=== PATIENT | female | born 1935 | race Caucasian/White ===

== ENCOUNTER → 2017-05-27 | Outpatient (CLI) | payer MEDICARE, BC ==
[~2017-05-27] MED LIST: ALEVE; ALEVE220 M1 PO; AMLODIPINE PO; ASPIRIN PO; BISOPROLOL; CRESTOR10 MG PO; ELIQUIS PO; FUROSEMIDE40 MG PO; IRON SUPPLEMEN325 MG PO; LEVOTHYROXINE150 MCG PO; METOPROLOL TART25 MG PO; PANTOPRAZOLE SO40 MG PO; POTASSIUM CHLO20 ME1 PO; TRIAMTERENE; VITAMIN B-121000 MCG PO; ZYRTEC10 MG PO
--- NOTE | 2017-05-27 12:07 | Diagnostic Imaging Report ---
PROCEDURE:US RETROPERITONEAL ( KIDNEY ). COMPARISON:Patients [facility], US, US RETROPERITONEAL ( KIDNEY )., 06/23/2016, 11:36. INDICATIONS:Chronic Kidney Disease TECHNIQUE: Wen-scale and color sonographic images of the bilateral kidneys and bladder where obtained in transverse and longitudinal planes. FINDINGS: RIGHT KIDNEY: 8.9 cm, cortex 1.5 cm Cysts: None Solid masses: None Stones: None Hydronephrosis: None Echogenicity: Increased LEFT KIDNEY: 8.8 cm, cortex 1.3 cm Cysts: None Solid masses: None Stones: None Hydronephrosis: None Echogenicity: Increased Bladder: No focal lesions. No wall thickening. Prevoid bladder volume 285 mL. Post void bladder volume 40 mL. CONCLUSION: 1. Small echogenic kidneys consistent with chronic medical renal disease. No hydronephrosis, stones, or obstruction. 2. No significant postvoid residual. Joselito Lacey M.D. Dictated by: Joselito Lacey M.D. on 05/27/2017 at 12:16 Electronically approved by: Joselito Lacey M.D. on 05/27/2017 at 12:16
--- NOTE | 2017-05-27 12:07 | Diagnostic Imaging Report ---
PROCEDURE:URINARY BLADDER ULTRASOUND COMPARISON:None. INDICATIONS:Chronic Kidney Disease CONCLUSION: Please refer to renal ultrasound performed at the same date and time for full dictated report. Joselito Lacey M.D. Dictated by: Joselito Lacey M.D. on 05/27/2017 at 12:16 Electronically approved by: Joselito Lacey M.D. on 05/27/2017 at 12:16
== END ==
LOC: US 10:43
PROVIDERS: ATTEND Internal Medicine Nephrology
DX: N18.4 Chronic kidney disease, stage 4 (severe) (principal)
CPT/HCPCS: 76770; 76857

== ENCOUNTER 2018-08-09 10:42 | Observation (INO) | payer MEDICARE, BC ==
[~2018-08-09] VITALS: Ht 157.5 cm; Wt 62.7 kg
--- OUTSIDE RECORDS SUMMARY | 2018-08-09 10:45 | XMS REPORT ---
Author Author [facility] Address Unknown Phone Unavailable Care Team Providers Care Aircraft Layout Worker Name Role Phone REBECCA RINCON Unavailable Unavailable Problems This patient has no known problems. Allergies, Adverse Reactions, Alerts This patient has no known allergies or adverse reactions. Medications This patient has no known medications. Results Test Description Test Time Test Comments Text Results Atomic Results Result Comments US RENAL RETROPERITONEAL COMP [place] [address] Patient Name: PERICO MILTON MR #: [id number] : 1935 Age/Sex: 82/F Req #: [id number] Adm Physician: Ordered by: REBECCA RINCON MD Report #: [id number] Location: Room/Bed: Procedure: [id number] US/US RENAL RETROPERITONEAL COMP Exam Date: Exam Time: REPORT STATUS: Signed PROCEDURE: US RETROPERITONEAL ( KIDNEY ). COMPARISON: [facility], , US RETROPERITONEAL ( KIDNEY )., 06/23/2016, 11:36. INDICATIONS: Chronic Kidney Disease TECHNIQUE: Wen-scale and color sonographic images of the bilateral kidneys and bladder where obtained in transverse and longitudinal planes. FINDINGS: RIGHT KIDNEY: 8.9 cm, cortex 1.5 cm Cysts: None Solid masses: None Stones: None Hydronephrosis: None Echogenicity: Increased LEFT KIDNEY: 8.8 cm, cortex 1.3 cm Cysts: None Solid masses: None Stones: None Hydronephrosis: None Echogenicity: Increased Bladder: No focal lesions. No wall thickening. Prevoid bladder volume 285 mL. Post void bladder volume 40 mL. CONCLUSION: 1. Small echogenic kidneys consistent with chronic medical renal disease. No hydronephrosis, stones, or obstruction. 2. No significant postvoid residual. Hannah Lacey M.D. Dictated by: Hannah Lacey M.D. on 05/27/2017 at 12:16 Electronically approved by: Hannah Lacey M.D. on 05/27/2017 at 12:16 Dictated By: HANNAH LACEY MD 1216 Transcribed By: SIRENA on 05/27/17 1216 COPY TO: REBECCA RINCON MD US PELVIC (NON OB) THOMPSON OR F/U [place] [address] Patient Name: PERICO MILTON MR #: [id number] : 1935 Age/Sex: 82/F Req #: [id number] Adm Physician: Ordered by: REBECCA RINCON MD Report #: [id number] Location: Room/Bed: Procedure: [id number] US/US PELVIC (NON OB) THOMPSON OR F/U Exam Date: Exam Time: REPORT STATUS: Signed PROCEDURE: URINARY BLADDER ULTRASOUND COMPARISON: None. INDICATIONS: Chronic Kidney Disease CONCLUSION: Please refer to renal ultrasound performed at the same date and time for full dictated report. Hannah Lacey M.D. Dictated by: Hannah Lacey M.D. on 05/27/2017 at 12:16 Electronically approved by: Hannah Lacey M.D. on 05/27/2017 at 12:16 Dictated By: HANNAH LACEY MD 1216 Transcribed By: SIRENA on 05/27/17 1216 COPY TO: REBECCA RINCON MD
[2018-08-09 11:58] LABS: BASOPHILS % 0.5 % (0.0-1.0); HEMATOCRIT 32.3 % (34.2-44.1); LYMPHOCYTES # (AUTO) 1.3 (1.0-3.2); LYMPHOCYTES % 19.8 % (18.0-39.1); MEAN CORPUSCULAR HEMOGLOBIN 29.8 pg (28-32); MEAN CORPUSCULAR HGB CONC 34.1 g/dL (31-35); MEAN CORPUSCULAR VOLUME 87.5 fL (81-99); MONOCYTES # (AUTO) 0.4 (0.2-0.8); MONOCYTES % 6.4 % (4.4-11.3); NEUTROPHILS # (AUTO) 4.8 (2.1-6.9); NEUTROPHILS % 73.1 % (38.7-80.0); PLATELET COUNT 205 x10e3/uL (140-360); RED BLOOD COUNT 3.69 x10e6/uL (3.6-5.1); RED CELL DISTRIBUTION WIDTH 11.6 % (11.7-14.4)
[2018-08-09 12:15] LABS: ALBUMIN 4.1 g/dL (3.5-5.0); ALBUMIN/GLOBULIN RATIO 1.1 (0.8-2.0); ANION GAP 17.2 mmol/L (8-16); CALCIUM 10.1 mg/dL (8.4-10.2); CREATININE, SERUM 1.58 mg/dL (0.57-1.11); POTASSIUM 4.2 mmol/L (3.5-5.1)
[2018-08-09 12:24] LABS: CREATINE KINASE MB 3.1 ng/mL (0-5.0)
[2018-08-09 12:31] LABS: INR 0.84
[2018-08-09 12:32] LABS: PARTIAL THROMBOPLASTIN TIME 27.6 seconds (23.8-35.5)
--- NOTE | 2018-08-09 12:35 | Diagnostic Imaging Report ---
Examination: Single AP view of the chest. COMPARISON: None. INDICATION: Weakness, hypotension DISCUSSION: The lungs are well-inflated and without focal consolidation, pleural effusion, or pneumothorax. Atherosclerotic calcification of the thoracic aorta with otherwise normal cardiomediastinal contour. No acute osseous abnormality. Degenerative changes of the right acromioclavicular joint with a surgical anchor in the right humeral head. IMPRESSION: 1. No acute cardiopulmonary abnormalities. Signed by: Dr. Jake Gibson M.D. on 08/09/2018 12:31 PM
--- NOTE | 2018-08-09 12:38 | Diagnostic Imaging Report ---
EXAMINATION: Head CT HISTORY: Weakness, hypotension COMPARISON: Head CT 06/22/2016 TECHNIQUE: Multidetector axial images were obtained without contrast from the foramen magnum to the vertex . The images were reconstructed using brain and bone algorithms. Thin section brain images were reformatted into coronal and sagittal planes. Image quality: Motion/streaking artifact limits the evaluation of the skull base and posterior cranial fossa. Dose modulation, iterative reconstruction, and/or weight based adjustment of the mA/kV was utilized to reduce the radiation dose to as low as reasonably achievable. FINDINGS: Parenchyma: 1. Persistent mild white matter chronic microvascular ischemic changes. 2. No mass or hemorrhage. No CT evidence of acute territorial vascular insult. Extra-axial spaces:No abnormal density. No extra-axial fluid collections Brain volume: Mild generalized brain volume loss. Ventricles: No hydrocephalus or displacement. Arteries: No density suggestive of thrombus. Dural sinuses: No abnormal density. Extra-axial spaces: No abnormal density. Foramen magnum: No mass, Chiari malformation, or basilar invagination. Sella: No obvious mass. Paranasal/mastoid sinuses: Imaged portions unremarkable. Skull/Scalp: No lytic or blastic lesions. No fractures. IMPRESSION: 1. No acute intracranial abnormalities, unchanged compared to CT of 06/22/2016. 2. Stable mild chronic microvascular ischemic changes. Signed by: Dr. Kae Weir M.D. on 08/09/2018 12:35 PM
[2018-08-09 13:15] LABS: BILIRUBIN,URINE NEGATIVE (NEGATIVE); CLARITY,URINE CLEAR (CLEAR); COLOR,URINE STRAW (YELLOW); KETONES,URINE NEGATIVE (NEGATIVE); LEUKOCYTE ESTERASE ,URINE NEGATIVE (NEGATIVE); NITRITE,URINE NEGATIVE (NEGATIVE); PROTEIN,URINE DIPSTICK NEGATIVE (NEGATIVE); URINE UROBILINOGEN 0.2 mg/dL (0.2 - 1)
[2018-08-09 13:36] LABS: AMORPHOUS SEDIMENT,URINE FEW (FEW); BACTERIA,URINE MODERATE /HPF; EPITHELIAL CELLS,URINE RARE /LPF; RBC,URINE 0-5 /HPF (0-5)
[2018-08-09] MEDS ORDERED: SODIUM CHLORIDE 0.9% 1000ML 1,000 ML IV SCH (17:00)
[2018-08-09] MEDS ORDERED: ONDANSETRON HCL INJ 2MG/ML 2ML 2 MG/ML VIAL IV PRN (18:00)
[2018-08-09] MEDS ORDERED: CEFTRIAXONE SOD 1 GM/NS 50 ML 50 ML IV SCH (18:00)
[2018-08-09] MEDS ORDERED: PANTOPRAZOLE 40 MG 10ML VIAL IV ONE (18:00)
[2018-08-09] MEDS: CEFTRIAXONE SOD 1 GM/NS 50 ML 50 ML IV SCH (21:42)
[2018-08-09] MEDS: PANTOPRAZOLE 40 MG 10ML VIAL IV SCH (21:43)
[2018-08-09] MEDS: SODIUM CHLORIDE 0.9% 1000ML 1,000 ML IV SCH (22:00)
[2018-08-09] MEDS ORDERED: ULORIC40 MG PO (22:06)
--- NOTE | 2018-08-09 22:41 | NUR ---
Verbal report given to Orin RAYMOND. Pt is in no acute distress at this time.
--- NOTE | 2018-08-10 01:09 | History and Physical ---
CHIEF COMPLAINT: "I feel very weak." HISTORY OF PRESENT ILLNESS: This is an 83-year-old white woman, who presents to [facility] with a 1-week history of worsening generalized weakness. The patient states over the last 3 to 4 days she has had inadvertent regurgitation with solids and liquids. The patient is very afraid to fall. In the emergency room, the patient was found to have a sodium level of 121. The patient's complete blood count was normal, except for hemoglobin slightly low at 11.0 g/dL. The patient's urinalysis was unremarkable, except it did reveal trace blood with moderate bacteria. No white blood cells were appreciated in the urine. The patient had a CT of the head, which did not reveal any acute intracranial abnormality. The patient underwent a chest x-ray in the emergency room, which also was unremarkable. REVIEW OF SYSTEMS: GENERAL: Weight is stable. Denies any fever or chills. She complains of worsening weakness over the last week. HEENT: No headaches. No visual changes. No dizziness. CARDIOVASCULAR/RESPIRATORY: No chest pain or shortness of breath, but she has dyspnea on exertion. Denies any palpitation, but she has history of paroxysmal atrial fibrillation. GI: She has inadvertent regurgitation over the last few days. No nausea though. No diarrhea. : Frequent urination. Denies any other UTI symptoms. ALLERGIES: IODINE. FAMILY HISTORY: Mother had congestive heart failure. SOCIAL HISTORY: This woman is a . She lives alone. No history of tobacco or alcohol use. PAST MEDICAL HISTORY: 1. Hypertensive heart disease. 2. Paroxysmal atrial fibrillation. 3. Stage 3 chronic kidney disease. 4. Multilevel lumbar disk disease. 5. Hypothyroidism. 6. Anemia, secondary to chronic disease/iron deficiency. 7. GERD. 8. Hyperlipidemia. 9. Sinus allergies. PAST SURGICAL HISTORY: 1. Multiple EGDs. 2. Right rotator cuff repair. 3. Hemorrhoidectomy. 4. Foot surgery. 5. Bilateral cataract surgery. HOME MEDICATIONS: 1. Zyrtec 10 mg daily. 2. Vitamin B12 of 1000 mcg daily. 3. Ferrous sulfate 325 mg daily. 4. Furosemide 40 mg daily. 5. Levothyroxine 150 mcg daily. 6. Metoprolol tartrate 25 mg. 7. Pantoprazole 40 mg daily. 8. Potassium chloride 20 mEq daily. 9. Rosuvastatin 10 mg at bedtime. 10. Amlodipine 10 mg daily. PHYSICAL EXAMINATION: GENERAL: She is awake, alert, and fluent, very pleasant. VITAL SIGNS: Height 5 feet 4 inches, weight 137 pounds, BMI 30. Blood pressure is 155/80, pulse is 90, respiratory rate 18, oxygen saturation 95%, temperature 98.1. INTEGUMENT: Skin is warm and dry. No pallor, jaundice, or diaphoresis. HEENT: Anterior sclerae. Dry mucous membranes. NECK: Supple. CARDIOVASCULAR: Distant heart sounds. Tachycardic rate with a regular rhythm. The patient has S4 gallop. LUNGS: No rales. No rhonchi. No wheezes. ABDOMEN: Benign. EXTREMITIES: No edema or deformity. NEUROLOGIC: Intact. No gross focal paresthesia, but she does have an unsteady gait. DIAGNOSES: 1. Hyponatremia. 2. Hypertensive heart disease. 3. Qynld-el-xdycmud renal failure. 4. Gastritis. 5. Urinary tract infection, likely. PLAN: 1. Free water restriction because of the patient's hyponatremia. 2. Intravenous saline. 3. Intravenous proton pump inhibitor. 4. We will ask Physical Therapy to assess the patient's gait. 5. Follow electrolytes. 6. Start intravenous ceftriaxone for the patient's presumed urinary tract infection. 7. Place in observation status. I spent 40 minutes in the care of this patient. MD PRANAV Curiel/MARY /[id number] MTDD
--- NOTE | 2018-08-10 07:15 | NUR ---
REPORT GIVEN TO MANDI MUNIZ DAY SHIFT NURSE.
[2018-08-10] MEDS: SODIUM CHLORIDE 0.9% 1000ML 1,000 ML IV SCH ×3 (07:50→17:51)
--- NOTE | 2018-08-10 08:30 | NUR ---
ECHO AT BEDSIDE AT THIS TIME.
[2018-08-10 08:42] LABS: BASOPHILS % 0.7 % (0.0-1.0); EOSINOPHILS % 0.9 % (0.0-6.0); HEMATOCRIT 29.4 % (34.2-44.1); LYMPHOCYTES # (AUTO) 1.5 (1.0-3.2); LYMPHOCYTES % 32.4 % (18.0-39.1); MEAN CORPUSCULAR HEMOGLOBIN 29.9 pg (28-32); MONOCYTES # (AUTO) 0.5 (0.2-0.8); MONOCYTES % 10.9 % (4.4-11.3); NEUTROPHILS # (AUTO) 2.5 (2.1-6.9); NEUTROPHILS % 54.7 % (38.7-80.0); PLATELET COUNT 189 x10e3/uL (140-360); RED BLOOD COUNT 3.34 x10e6/uL (3.6-5.1); RED CELL DISTRIBUTION WIDTH 11.7 % (11.7-14.4)
[2018-08-10 08:59] LABS: ANION GAP 16.3 mmol/L (8-16); CALCIUM 9.3 mg/dL (8.4-10.2); CREATININE, SERUM 1.4 mg/dL (0.57-1.11); POTASSIUM 4.3 mmol/L (3.5-5.1)
[2018-08-10] MEDS: PANTOPRAZOLE 40 MG 10ML VIAL IV SCH (09:00)
--- NOTE | 2018-08-10 09:11 | NUR ---
LUKAS FROM LAB CALLED TO REPORT CRITICAL BLOOD GLUCOSE 56 MG/DL. INFORMED MANDI MUNIZ PT'S PRIMARY NURSE.
--- NOTE | 2018-08-10 09:20 | NUR ---
DR. GARDINER AT BEDSIDE AT THIS TIME FOR PATIENT EVAL, AWAITING ORDERS.
--- NOTE | 2018-08-10 11:35 | NUR ---
patient arrived via bed from ER, AAOx3, No distress noted, denies any pain, resp even and unlabored, on IV fluids, call light in reach, bed in lowest position HOB elevated
[2018-08-10 11:47] VITALS: BP 116/67
--- NOTE | 2018-08-10 13:45 | NUR ---
Visit made by the Spiritual Care Department Pastoral Visitor, Kassi Blanchard. PV provided pastoral presence, prayer, hospitality, and supportive listening. Pastoral Visitor informed pt/family of the scope of Clinical Admissions Manager Services and availability. KITA BARBOZA [employer] Grade Teacher Spiritual Care Department O: [phone] Pager: [phone] ([phone] number calling from)
[2018-08-10 14:26] VITALS: BP 126/60
[2018-08-10 16:27] VITALS: BP 136/63
[2018-08-10] MEDS: CEFTRIAXONE SOD 1 GM/NS 50 ML 50 ML IV SCH (17:13)
--- NOTE | 2018-08-10 18:11 | NUR ---
patient resting bed, alert with no distress, on IV fluids, denies any pain, tolerated with food
--- NOTE | 2018-08-10 19:20 | NUR ---
Received report from previous nurse. Patient A&Ox3. No pain or distress noted. Call light within reach.
[2018-08-10 20:00] VITALS: BP 127/59
[2018-08-11] VITALS (8 sets, daily range): BP systolic 112–152; BP diastolic 59–81
[2018-08-11] MEDS: SODIUM CHLORIDE 0.9% 1000ML 1,000 ML IV SCH ×2 (01:51→09:51)
[2018-08-11 05:19] LABS: BASOPHILS % 0.8 % (0.0-1.0); EOSINOPHILS # (AUTO) 0.1 (0.0-0.4); EOSINOPHILS % 1.8 % (0.0-6.0); HEMATOCRIT 25.4 % (34.2-44.1); HEMOGLOBIN 8.5 g/dL (12.0-16.0); LYMPHOCYTES # (AUTO) 1.1 (1.0-3.2); LYMPHOCYTES % 28.9 % (18.0-39.1); MEAN CORPUSCULAR HEMOGLOBIN 29.8 pg (28-32); MEAN CORPUSCULAR HGB CONC 33.5 g/dL (31-35); MEAN CORPUSCULAR VOLUME 89.1 fL (81-99); MONOCYTES # (AUTO) 0.5 (0.2-0.8); NEUTROPHILS # (AUTO) 2.2 (2.1-6.9); NEUTROPHILS % 55.2 % (38.7-80.0); PLATELET COUNT 172 x10e3/uL (140-360); RED BLOOD COUNT 2.85 x10e6/uL (3.6-5.1); RED CELL DISTRIBUTION WIDTH 11.9 % (11.7-14.4)
[2018-08-11 05:45] LABS: ALBUMIN 2.9 g/dL (3.5-5.0); ANION GAP 10.8 mmol/L (8-16); CALCIUM 8.5 mg/dL (8.4-10.2); CREATININE, SERUM 1.31 mg/dL (0.57-1.11); POTASSIUM 3.8 mmol/L (3.5-5.1)
--- NOTE | 2018-08-11 07:07 | NUR ---
Gave report to oncoming nurse. NO pain or distress noted. Call light within reach.
[2018-08-11] MEDS: PANTOPRAZOLE 40 MG 10ML VIAL IV SCH (09:00)
--- NOTE | 2018-08-11 12:10 | NUR ---
SOCIAL WORK INITIAL ASSESSMENT Funeral Service Manager to bedside to discuss plan of care with patient/family. CM/SW role and care transitions discussed. Anticipated discharge plan discussed along with duration of care. CM/SW discussed patients right to make decisions in care. CM/SW work hours given. Patient lives: HOME ALONE Admit/Transfer: VIA ED FROM HOME POA/Emergency contact: DAUGHTER IN LAW BEING CREAMATED TODAY SO EC IS FRIEND ALISHA FRAGOSO [phone] Current/Previous Home Health: NONE PCP/Follow-up Care: ABDIFATAH Current/Previous DME: NONE Other Services: NONE Employment Status: RETIRED Areas of Concerns: NEED HOME HEALTH Referral Needs: MY NURSE HOME HEALTH CHOICE SIGNED AND FILED ON CHART Education Needs: NONE IMM/ZAMARRIPA given and signed (if applicable): UPON ADMISSION Goal for discharge: RETURN HOME WITH HOME HEALTH CM/SW left business card at the bedside with contact information. Name and number was also written on the patients whiteboard. Patient verbalized understanding of discussion. CM will follow-up with ongoing discharge and transition of care needs.
--- NOTE | 2018-08-11 13:30 | NUR ---
patient alert and oriented. Discharge instructions given to patient at this time, patient verbalized understanding. IV discontinued, catheter in tact and pressure dressing applied. Patient leaving unit via wheelchair to personal auto for friend to drive home.
--- NOTE | 2018-08-11 14:43 | NUR ---
FAXED CLINICALS TO [phone] VERIFIED THROUGH [facility] IT WAS RECEIVED AND PT WILL BE SEEN TOMORROW
--- NOTE | 2018-08-12 04:38 | Discharge Summary ---
ADMIT DIAGNOSES: 1. Hyponatremia. 2. Hypertensive heart disease. 3. Dofbk-af-jfkxggk renal failure. 4. Gastritis. 5. Urinary tract infection, likely. DISCHARGE DIAGNOSES: 1. Hyponatremia, resolving. 2. Hypertensive heart disease. 3. Chronic diastolic congestive heart failure. 4. Kexvd-hd-thjipkt renal failure, resolved. 5. Stage 3 chronic kidney disease. 6. Allergic rhinitis. 7. Urinary tract infection, resolving. HOSPITAL COURSE: This is an 83-year-old white woman initially admitted to [facility] with diagnosis of hyponatremia and ijopw-ye-jqlcnxy renal failure. The patient's hyponatremia and gzwgb-gr-bgeafkm renal failure resolved with intravenous saline. On admission, the patient's serum sodium is 121 mg/dL with a BUN and creatinine of 15 and 1.58 respectively. On day of discharge, the patient's BUN and creatinine were 13 and 1.31 respectively with a sodium of 132. The patient's potassium on discharge was 3.8. During this hospitalization, the patient was found to have TSH of 1.568. Also during this hospitalization, the patient was found to have B type natriuretic peptide level of 82.5. The patient underwent echocardiogram during this hospitalization, which revealed a preserved left ventricular ejection fraction of 50%-55% with left atrial enlargement. The patient's hospitalization was unremarkable. During this hospital stay, she did receive physical therapy. CONDITION ON DISCHARGE: Stable. DISCHARGE MEDICATIONS: 1. Vitamin B12 1000 mcg daily. 2. Uloric 40 mg daily. 3. Ferrous sulfate 325 mg daily. 4. Furosemide 40 mg daily. 5. Levothyroxine 150 mcg. 6. Pantoprazole 40 mg daily. 7. Rosuvastatin 20 mg at bedtime. 8. Amlodipine 10 mg daily. FOLLOWUP INSTRUCTIONS: The patient is instructed to follow up with her primary care physician, namely myself, Dr. Bradly Duke within 1 week. The prior discharge home health nursing with home physical therapy was arranged. The patient was told not to drink more than 4 glasses of water a day with each glass being 8 ounces of volume. MD PRANAV Curiel/MARY /[id number] MTDD
== END 2018-08-11 13:32 | disposition home or self-care (01) ==
LOC: ER 10:42 → ERHOLD 17:51 → IMCU 08-10 10:51
PROVIDERS: ADMIT Internal Medicine; ATTEND Internal Medicine
DX: I13.0 Hypertensive heart and chronic kidney disease with heart failure and stage 1 through stage 4 chronic kidney disease, or unspecified chronic kidney disease (principal); I50.33 Acute on chronic diastolic (congestive) heart failure; N18.3 Chronic kidney disease, stage 3 (moderate); N39.0 Urinary tract infection, site not specified; E87.1 Hypo-osmolality and hyponatremia; K29.70 Gastritis, unspecified, without bleeding; N17.9 Acute kidney failure, unspecified
CPT/HCPCS: 36415 ×3; 70450; 71045; 80048; 80053 ×2; 81001; 82150; 82550; 82553; 82948; 83690; 83880; 84443; 84484; 85025 ×3; 85610; 85730; 93005; 93306; 97116 ×2; 97162; 97530; 99284; C9113; G0378 ×3; J0696 ×2; J7030 ×3

== ENCOUNTER 2019-01-29 08:59 | Inpatient (IN) | payer MEDICARE, BC ==
[~2019-01-29] VITALS: Ht 157.5 cm; Wt 69.4 kg
[~2019-01-29 08:59] MED LIST changes: +ULORIC40 MG PO
--- OUTSIDE RECORDS SUMMARY | 2019-01-29 09:04 | XMS REPORT ---
Author Author Karri Gaviria Organization [employer] Address Unknown Phone Unavailable Care Team Providers Care Ship Design Teacher Name Role Phone Karri Gaviria CP Unavailable Allergies No Known Allergies Problems Problem Type Condition Code Onset Dates Condition Status Assessment Essential hypertension I10 Active Problem Abnormal EKG R94.31 Active Problem Proximal leg weakness M62.81 Active Problem Diastolic CHF, acute I50.31 Active Problem Pure hypercholesterolemia E78.00 Active Problem Paroxysmal a-fib I48.0 Active Problem MEDELLIN (dyspnea on exertion) R06.09 Active Problem Hemifacial spasm G51.3 Active Problem Arteriosclerosis of both carotid arteries I65.23 Active Problem Essential hypertension I10 Active Medications Medication Code System Code Instructions Start Date End Date Status Dosage Amlodipine Besylate [facility] [address]-98 10 MG Orally Once a day Active 1 tablet Results No Known Results Summary Purpose [employer] Submission
--- OUTSIDE RECORDS SUMMARY | 2019-01-29 09:04 | XMS REPORT ---
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
--- OUTSIDE RECORDS SUMMARY | 2019-01-29 09:04 | XMS REPORT ---
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
--- OUTSIDE RECORDS SUMMARY | 2019-01-29 09:04 | XMS REPORT ---
Author Author Karri Gaviria Organization [employer] Address Unknown Phone Unavailable Care Team Providers Care Paving Inspector Name Role Phone Karri Gaviria CP Unavailable Encounters Encounter Location Date Unknown Karri Gaviria MD [place] May 20, 2016 Problems Problem Type Condition ICD-9 Code Onset Dates Condition Status Problem Abnormal [...] Date End Date Status Dosage Amlodipine Besylate [facility] [address]-17 10 MG Orally Once a day Active 1 tablet Social History Social History Element Qualifiers Date Reported Smoking . Status Never Smoker May 15, 2016 Alcohol Use No. May 15, 2016 Alcohol Screening: Yes. Did you have a drink containing alcohol in the past year?: No, Points: 0, Interpretation: Negative May 15, 2016 Marital Status: . May 15, 2016 Do you drink alcohol? No. May 15, 2016 Occupation: . Retired [employer] May 15, 2016 Summary Purpose [employer] Submission
--- OUTSIDE RECORDS SUMMARY | 2019-01-29 09:04 | XMS REPORT ---
Author Author Karri Gaviria Organization [employer] Address Unknown Phone Unavailable Care Team Providers Care Electric Mule Driver Name Role Phone Karri Gaviria CP Unavailable [...] Date End Date Status Dosage Amlodipine Besylate [facility] [address]-05 10 MG Orally Once a day Active 1 tablet Results No Known Results Summary Purpose [employer] Submission
--- OUTSIDE RECORDS SUMMARY | 2019-01-29 09:04 | XMS REPORT ---
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 Active Problem Positive MARQUES (antinuclear antibody) R76.8 Active Assessment 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 Active Medications Medication Code System Code Instructions Start Date End Date Status Dosage Levothyroxine Sodium [facility] 93279653196 150 MCG Orally Once a day Active 1 tablet on an empty stomach in the morning Benefiber [facility] [address]-27 - Active as directed Rosuvastatin Calcium ND 66951139579 20 MG Orally Once a day Active 1 tablet Vitamin B12 [facility] 08224650022 1000 MCG Orally Once a day Active 1 tablet Metoprolol Succinate ER ND 51733268611 25 MG Orally Once a day Active 1 tablet Tylenol ND 81239572411 325 MG Orally PRN Active 1 tablet Amlodipine Besylate ND 94193583353 10 MG Orally Once a day Active 1 tablet Uloric ND 92983856314 40 MG Orally Once a day Active 1 tablet Hydroxychloroquine Sulfate ND 04679614910 200 MG Orally Twice a day Apr 07, 2017 Active 1 tablet with food or milk Vitamin D3 ND 67400917251 2000 UNIT Orally Once a day Active 1 capsule Potassium Chloride CR NDC 0 20 MEQ Orally Active as directed PredniSONE NDC 0 5 MG Orally PRN Active 1 tab Furosemide ND 61861230363 40 MG Orally Once a day Active 1 tablet Pantoprazole Sodium ND 06291977841 40 MG Orally Once a day Active 1 tablet Xyzal ND 82193232826 5 MG Orally Once a day Active 1 tablet in the evening Iron [facility] 72466636500 325 (65 Fe) MG Orally Once a day Active 1 tablet Vital Signs Date/Time: Apr 23, 2017 BMI 27.46 Index Weight 160 lbs Height 64 in Temperature 97.6 F Cardiac Monitoring Heart Rate 74 /min Blood Pressure Diastolic 60 mm Hg Blood Pressure Systolic 122 mm Hg Results No Known Results Summary Purpose [employer] Submission
--- OUTSIDE RECORDS SUMMARY | 2019-01-29 09:04 | XMS REPORT | Continuity of Care Document ---
Author Author [employer] Address Unknown Phone Unavailable Care Team Providers Care Demand Planning Manager Name Role Phone [employer] Unavailable Unavailable Problems Problem Status Onset Date Classification Date Reported Comments Source Abnormal EKG Active Problem 12/08/2016 Mohamed O Aguilarbarbiedi Proximal leg weakness Active Problem 12/08/2016 Mohamed O Aguilarbarbiedi Diastolic CHF, acute Active Problem 12/08/2016 Mohamed O Aguilaroudi Pure hypercholesterolemia Active Problem 12/08/2016 Mohamed O Aguilaroudi Paroxysmal a-fib Active Problem 12/08/2016 Mohamed O Aguilarbarbiedi MEDELLIN (dyspnea on exertion) Active Problem 12/08/2016 Mohamed O Aguilarbarbiedi Hemifacial spasm Active Problem 12/08/2016 Mohamed O Aguilarbarbiedi Arteriosclerosis of both carotid arteries Active Problem 12/08/2016 Mohamed O Aguilaroudi Essential hypertension Active Problem 12/08/2016 Mohamed O Aguilarbarbiedi Gout due to renal impairment Active Problem 07/21/2017 Hector Rios Joint pain Active Problem 07/21/2017 Hector Rios Undifferentiated connective tissue disease Active Problem 07/21/2017 Hector Rios Positive MARQUES (antinuclear antibody) Active Problem 07/21/2017 Hector Rios Anemia Active Problem 08/11/2018 [facility] Medications Medication Details Route Status Patient Instructions Ordering Provider Order Date Source Cetirizine Hcl (Zyrtec) 10 Mg Tablet, 10 Mg Oral Daily Active 08/09/2018 [facility] Metoprolol Tartrate 25 Mg Tablet, 25 Mg Oral Daily Active 08/09/2018 [facility] Potassium Chloride 20 Meq Tab.er.prt, 20 Meq Oral Daily Active 08/09/2018 [facility] Hydroxychloroquine Sulfate 1 tablet with food or milk Orally Active 200 MG Orally Twice a day [place] 04/07/2017 Hector Rios Aspirin , 81 Mg Oral Daily Active 06/24/2016 [facility] Eliquis , 5 Mg Oral Twice A Day Active 06/24/2016 [facility] Naproxen Sodium (Aleve) 220 Mg Capsule, 1 Tab Oral Twice A Day Active 06/24/2016 [facility] Bisoprolol , Daily Active 06/22/2016 [facility] Triamterene , Daily Active 06/22/2016 [facility] Aleve , As Needed Active 10/07/2012 [facility] Amlodipine Besylate 1 tablet Orally Active 10 MG Orally Once a day Everette Gaviria Levothyroxine Sodium 1 tablet on an empty stomach in the morning Orally Active 150 MCG Orally Once a day [place] Hector Rios Benefiber as directed NA Active - [place] Hector Rios Rosuvastatin Calcium 1 tablet Orally Active 20 MG Orally Once a day [place] Hector Rios Vitamin B12 1 tablet Orally Active 1000 MCG Orally Once a day [place] Hector Rios Metoprolol Succinate ER 1 tablet Orally Active 25 MG Orally Once a day [place] Hector Rios Tylenol 1 tablet Orally Active 325 MG Orally PRN [place] Hector Rios Amlodipine Besylate 1 tablet Orally Active 10 MG Orally Once a day [place] Hector Rios Uloric 1 tablet Orally Active 40 MG Orally Once a day [place] Hector Rios Vitamin D3 1 capsule Orally Active 2000 UNIT Orally Once a day [place] Hector Rios Potassium Chloride CR as directed Orally Active 20 MEQ Orally [place] Hector Rios PredniSONE 1 tab Orally Active 5 MG Orally PRN [place] Hector Rios Furosemide 1 tablet Orally Active 40 MG Orally Once a day [place] Hector Rios Pantoprazole Sodium 1 tablet Orally Active 40 MG Orally Once a day [place] Hector Rios Xyzal 1 tablet in the evening Orally Active 5 MG Orally Once a day [place] Hector Rios Iron 1 tablet Orally Active 325 (65 Fe) MG Orally Once a day [facility] Hector Rios Amlodipine 10 Mg Daily Active [facility] Cyanocobalamin (Vitamin B-12) 1,000 Mcg Tab Daily Active [facility] Febuxostat (Uloric) 40 Mg Tablet Daily Active [facility] Ferrous Sulfate (Iron Supplement) 325 Mg Tablet Daily Active [facility] Furosemide 40 Mg Tablet Daily Active [facility] Levothyroxine Sodium 150 Mcg Tablet Daily Active [facility] Pantoprazole Sodium (Protonix) 40 Mg Tablet.dr Daily Active [facility] Rosuvastatin Calcium (Crestor) 10 Mg Tab Bedtime Active THERAPEUTICALLY SUBSTITUTED WITH SIMVASTATIN 40MG [facility] Allergies, Adverse Reactions, Alerts Substance Category Reaction Severity Reaction type Status Date Reported Comments Source Iodine TOPICAL IODINE Unknown Allergy to Substance Active 08/09/2018 [facility] Immunizations No Data Provided for This Section Results Order Name Results Value Reference Range Date Interpretation Comments Source Blood leukocytes automated count (number/volume) 3.91 4.8 - 10.8 08/11/2018 [facility] Blood erythrocytes automated count (number/volume) 2.85 3.6 - 5.1 08/11/2018 [facility] Blood hemoglobin measurement (moles/volume) 8.5 12.0 - 16.0 08/11/2018 [facility] Automated blood hematocrit (volume fraction) 25.4 34.2 - 44.1 08/11/2018 [facility] Automated erythrocyte mean corpuscular volume 89.1 81 - 99 08/11/2018 [facility] Automated erythrocyte mean corpuscular hemoglobin (mass per erythrocyte) 29.8 28 - 32 08/11/2018 [facility] Automated erythrocyte mean corpuscular hemoglobin concentration measurement (mass/volume) 33.5 31 - 35 08/11/2018 [facility] RDW BldCo-Rto 11.9 11.7 - 14.4 08/11/2018 [facility] Automated blood platelet count (count/volume) 172 140 - 360 08/11/2018 [facility] Automated blood segmented neutrophil count as percentage of total leukocytes 55.2 38.7 - 80.0 08/11/2018 [facility] Automated blood lymphocyte count as percentage ot total leukocytes 28.9 18.0 - 39.1 08/11/2018 [facility] Automated blood monocyte count as percentage of total leukocytes 13.0 4.4 - 11.3 08/11/2018 [facility] Automated blood eosinophil count as percentage of total leukocytes 1.8 0.0 - 6.0 08/11/2018 [facility] Automated blood basophil count as percentage of total leukocytes 0.8 0.0 - 1.0 08/11/2018 [facility] IM GRANULOCYTES % 0.3 0.0 - 1.0 08/11/2018 [facility] Automated blood neutrophil count 2.2 2.1 - 6.9 08/11/2018 [facility] Blood lymphocytes count (number/volume) 1.1 1.0 - 3.2 08/11/2018 [facility] Blood monocytes automated count (number/volume) 0.5 0.2 - 0.8 08/11/2018 [facility] Automated blood eosinophil count 0.1 0.0 - 0.4 08/11/2018 [facility] Automated blood basophil count (count/volume) 0.0 0.0 - 0.1 08/11/2018 [facility] Absolute Immature Granulocyte (auto 0.01 0 - 0.1 08/11/2018 [facility] Serum or plasma sodium measurement (moles/volume) 132 136 - 145 08/11/2018 [facility] Serum or plasma potassium measurement (moles/volume) 3.8 3.5 - 5.1 08/11/2018 [facility] Serum or plasma chloride measurement (moles/volume) 100 98 - 107 08/11/2018 [facility] Serum or plasma carbon dioxide, total measurement (moles/volume) 25 22 - 29 08/11/2018 [facility] Serum or plasma anion gap 10.8 8 - 16 08/11/2018 [facility] Serum or plasma urea nitrogen measurement (mass/volume) 13 7 - 26 08/11/2018 [facility] Serum or plasma creatinine measurement (mass/volume) 1.31 0.57 - 1.11 08/11/2018 [facility] Serum or plasma urea nitrogen/creatinine mass ratio 10 6 - 25 08/11/2018 [facility] Estimated glomerular filtration rate (GFR) determination 39 60 08/11/2018 [facility] Glucose measurement 75 74 - 118 08/11/2018 [facility] Serum or plasma calcium measurement (mass/volume) 8.5 8.4 - 10.2 08/11/2018 [facility] Serum or plasma total bilirubin measurement (mass/volume) 0.4 0.2 - 1.2 08/11/2018 [facility] Aspartate Amino Transf (AST/SGOT) 32 5 - 34 08/11/2018 [facility] Serum or plasma alanine aminotransferase measurement (enzymatic activity/volume) 16 0 - 55 08/11/2018 [facility] Serum or plasma protein measurement (mass/volume) 5.8 6.5 - 8.1 08/11/2018 [facility] Serum or plasma albumin measurement (mass/volume) 2.9 3.5 - 5.0 08/11/2018 [facility] Plasma globulin measurement (mass/volume) 2.9 2.3 - 3.5 08/11/2018 [facility] Serum or plasma albumin/globulin mass ratio 1.0 0.8 - 2.0 08/11/2018 [facility] Serum or plasma alkaline phosphatase measurement (enzymatic activity/volume) 45 40 - 150 08/11/2018 [facility] Capillary blood glucose measurement by glucometer (mass/volume) 86 70 - 120 08/10/2018 [facility] Serum or plasma thyrotropin measurement by detection limit <=0.005 miu/l (units/volume) 1.568 0.350 - 4.940 08/10/2018 [facility] Prothrombin time (PT) in platelet poor plasma by coagulation assay 12.0 11.9 - 14.5 08/09/2018 [facility] INR in Platelet poor plasma by Coagulation assay 0.84 08/09/2018 [facility] Activated partial thromboplastin time (aPTT) in platelet poor plasma bycoagulation assay 27.6 23.8 - 35.5 08/09/2018 [facility] Urine color determination STRAW YELLOW 08/09/2018 [facility] Urine clarity CLEAR CLEAR 08/09/2018 [facility] Specific gravity of Urine by Test strip 1.005 1.010 - 1.025 08/09/2018 [facility] Urine pH measurement by automated test strip 6 5 - 7 08/09/2018 [facility] Urine leukocyte esterase detection by dipstick NEGATIVE NEGATIVE 08/09/2018 [facility] Urine nitrite detection NEGATIVE NEGATIVE 08/09/2018 [facility] Urine protein measurement by test strip (mass/volume) NEGATIVE NEGATIVE 08/09/2018 [facility] Urine glucose detection NEGATIVE NEGATIVE 08/09/2018 [facility] Urine ketones detection by automated test strip NEGATIVE NEGATIVE 08/09/2018 [facility] Urine urobilinogen measurement by test strip (mass/volume) 0.2 0.2 - 1 08/09/2018 [facility] Urine total bilirubin measurement (mass/volume) NEGATIVE NEGATIVE 08/09/2018 [facility] Urine erythrocytes detection TRACE NEGATIVE 08/09/2018 [facility] Automated urine sediment leukocyte count by microscopy (number/high power field) NONE 0 - 5 08/09/2018 [facility] Erythrocytes detection in urine sediment by light microscopy 0-5 0 - 5 08/09/2018 [facility] Bacteria detection in urine sediment by light microscopy MODERATE NONE 08/09/2018 [facility] Epithelial cells detection in urine sediment by light microscopy RARE NONE 08/09/2018 [facility] Amorphous sediment detection in urine sediment by light microscopy FEW FEW 08/09/2018 [facility] 82.5 0 - 100 08/09/2018 [facility] Serum or plasma creatine kinase measurement (enzymatic activity/volume) 92 29 - 168 08/09/2018 [facility] Serum or plasma creatine kinase MB measurement (mass/volume) 3.10 0 - 5.0 08/09/2018 [facility] Troponin I measurement by highly sensitive enzyme immunoassay 0.046 0 - 0.300 08/09/2018 [facility] Serum or plasma amylase measurement (enzymatic activity/volume) 68 25 - 125 08/09/2018 [facility] Serum or plasma lipase measurement (enzymatic activity/volume) 27 8 - 78 08/09/2018 [facility] Pathology Reports No Data Provided for This Section Diagnostic Reports No Data Provided for This Section Consultation Notes No Data Provided for This Section Discharge Summaries No Data Provided for This Section History and Physicals No Data Provided for This Section Vital Signs Vital Sign Value Date Comments Source Weight 160 04/23/2017 Hector Rios Height 64 04/23/2017 Hector Rios Temperature Oral (F) 97.6 F 04/23/2017 Hector Rios Heart Rate 74 04/23/2017 Hector Rios Diastolic (mm Hg) 60 04/23/2017 Hector Rios Systolic (mm Hg) 122 04/23/2017 Hector Rios Encounters Location Location Details Encounter Type Encounter Number Reason For Visit Attending Provider ADM Date DC Date Status Source Karri Gaviria MD PA Unknown [id number] 05/20/2016 05/20/2016 Karri Gaviria Discharged Inpatient (obs) [id number] BO GARDINER MD 08/09/2018 08/11/2018 [facility] Procedures Procedure Code Date Perfomer Comments Source Computed tomography of brain without radiopaque contrast [id number] 08/09/2018 [facility] Assessment and Plan No Data Provided for This Section Plan of Care Plan of Care Date Source Discharge Date 08/11/18 1:32pm Disposition HOME, SELF-CARE Instructions/Education Provided Hyponatremia Weakness (Generalized) Prescriptions See Medication Section Additional Instructions/Education F/U with PCP in 7 days Drink no more than 4 - 8 oz cups of water per day 08/11/2018 [facility] Social History Social History Date Source Social History Problem Response Recorded Date/Time Onset Date Status Hx Psychiatric Problems No 06/22/2016 4:39pm Not Applicable Not Applicable Hx Eating Disorder No 06/22/2016 4:39pm Not Applicable Not Applicable Hx Substance Use Disorder No 06/22/2016 4:39pm Not Applicable Not Applicable Hx Depression No 06/22/2016 4:39pm Not Applicable Not Applicable Hx Alcohol Use No 06/22/2016 4:39pm Not Applicable Not Applicable Hx Substance Use Treatment No 06/22/2016 4:39pm Not Applicable Not Applicable Hx Physical Abuse No 06/22/2016 4:39pm Not Applicable Not Applicable Smoking Status Start Date Stop Date Never Smoker 08/11/2018 [facility] Social History ElementQualifiersDate Reported Smoking . Status Never Smoker May 15, 2016 Alcohol Use No. May 15, 2016 Alcohol Screening: Yes. Did you have a drink containing alcohol in the past year?: No, Points: 0, Interpretation: Negative May 15, 2016 Marital Status: . May 15, 2016 Do you drink alcohol? No. May 15, 2016 Occupation: . Retired [employer] May 15, 2016 05/15/2016 Karri Gaviria Family History No Data Provided for This Section Advance Directives Order Name Results Value Date Source Advance Directives Advance Directives Directive Response Recorded Date/Time Does the patient have an advance directive? No 08/10/18 11:45am If yes, is advance directive on file with [facility]? No 08/10/18 11:45am If not on file with [facility] will patient provide a copy? No 08/10/18 11:45am Do you have a Directive to Physician? No 08/09/18 2:07pm Do you have a Medical Power of Out[place]? No 08/09/18 2:07pm Do you have an out of hospital Do Not Resuscitate Order? No 08/09/18 2:07pm Do you have any special needs we should be aware of? No 08/09/18 2:07pm Do you have a support person here with you today? Yes 08/09/18 2:07pm Did patient receive Notice of Privacy Practices? Yes 08/09/18 2:07pm Did patient receive patient rights and responsibilities? Yes 08/09/18 2:07pm 08/11/2018 [facility] Functional Status No Data Provided for This Section
[2019-01-29 10:08] LABS: BASOPHILS % 0.1 % (0.0-1.0); EOSINOPHILS # (AUTO) 0.1 (0.0-0.4); EOSINOPHILS % 0.3 % (0.0-6.0); HEMATOCRIT 30.9 % (34.2-44.1); HEMOGLOBIN 10.4 g/dL (12.0-16.0); LYMPHOCYTES % 13.4 % (18.0-39.1); MEAN CORPUSCULAR HEMOGLOBIN 29.7 pg (28-32); MEAN CORPUSCULAR HGB CONC 33.7 g/dL (31-35); MEAN CORPUSCULAR VOLUME 88.3 fL (81-99); MONOCYTES # (AUTO) 1.5 (0.2-0.8); MONOCYTES % 9.6 % (4.4-11.3); NEUTROPHILS # (AUTO) 11.5 (2.1-6.9); NEUTROPHILS % 75.8 % (38.7-80.0); PLATELET COUNT 389 x10e3/uL (140-360); RED CELL DISTRIBUTION WIDTH 13.5 % (11.7-14.4)
[2019-01-29 10:20] LABS: INR 0.99; PROTHROMBIN TIME 13.6 seconds (11.9-14.5)
[2019-01-29 10:21] LABS: PARTIAL THROMBOPLASTIN TIME 34.3 seconds (23.8-35.5)
[2019-01-29 10:28] LABS: ALBUMIN 2.6 g/dL (3.5-5.0); ALBUMIN/GLOBULIN RATIO 0.6 (0.8-2.0); ANION GAP 16.6 mmol/L (8-16); CALCIUM 9.2 mg/dL (8.4-10.2); CREATININE, SERUM 1.62 mg/dL (0.57-1.11); MAGNESIUM 2.5 MG/DL (1.3-2.1); POTASSIUM 3.6 mmol/L (3.5-5.1)
--- NOTE | 2019-01-29 10:36 | NUR ---
PATIENT BACK FROM CT AT THIS TIME; ULTRASOUND BEDSIDE AT THIS TIME
--- NOTE | 2019-01-29 10:37 | Diagnostic Imaging Report ---
History:Left leg weakness Comparison studies: CT head 06/22/2016 Technique: Axial images were obtained from the skull base to the vertex. Coronal and sagittal images reconstructed from the axial data. Dose modulation, iterative reconstruction, and/or weight based adjustment of the mA/kV was utilized to reduce the radiation dose to as low as reasonably achievable. Intravenous contrast: None Findings: Scalp/skull: No abnormalities. Extra-axial spaces: No masses. No fluid collections. Brain sulci: Moderately prominent. Ventricles: Moderate compensatory dilatation. No hydrocephalus. Parenchyma: Patchy and confluent hypodensities in the supratentorial white matter are small vessel ischemic changes. No masses, hemorrhage, acute or chronic cortical vascular insults. Sellar/suprasellar region: No abnormalities. Craniocervical junction: Patent foramen magnum. No Chiari one malformation. Incidental findings: Atherosclerotic calcifications in the carotid siphons . Impression: No acute abnormalities. Chronic findings: 1. Moderate generalized volume loss. 2. Mild supratentorial white matter small vessel ischemic changes. The images and preliminary report provided by the neuroradiology fellow were reviewed and a final report issued by Dr. Schwartz neuroradiology faculty on 01/29/2019 at 4:37 PM Signed by: Dr. Kae Weir M.D. on 01/29/2019 4:37 PM
--- NOTE | 2019-01-29 10:47 | Diagnostic Imaging Report ---
EXAMINATION: CHEST SINGLE (PORTABLE) INDICATION: ^WEAK ^[id number] ^[id number] COMPARISON: Chest radiograph 08/09/2018 FINDINGS: AP view TUBES and LINES: None. LUNGS: Lungs are well inflated. Left lower lung is obscured by the pleural effusion. Right lung is clear. Bilateral interstitial edema. PLEURA: Large left pleural effusion. No pneumothorax. HEART AND MEDIASTINUM: Interval increase in size of the cardiac silhouette. BONES AND SOFT TISSUES: Rotator screw overlying the right humeral head. Soft tissues are unremarkable. UPPER ABDOMEN: No free air under the diaphragm. IMPRESSION: Interval development of bilateral interstitial edema, large left pleural effusion, and increased size of the cardiac silhouette consistent with congestive heart failure. Signed by: Dr. Didi Shah M.D. on 01/29/2019 10:44 AM
[2019-01-29 10:48] LABS: CREATINE KINASE MB 0.9 ng/mL (0-5.0); THYROID STIMULATING HORMONE 1.836 uIU/mL (0.350-4.940)
--- NOTE | 2019-01-29 10:48 | Diagnostic Imaging Report ---
LEFT KNEE X-RAY - 3 VIEWS HISTORY: ^WEAK, LEFT KNEE PAIN ^[id number] ^[id number] COMPARISON: None available. FINDINGS: Bones: No acute displaced fracture. Osseous alignment is within normal limits. Joints: Moderate tricompartmental degenerative changes. Chondrocalcinosis in the medial and lateral compartments. Soft tissues: Linear calcification with a small fluid in the suprapatellar effusion suggestive of chronic. IMPRESSION: Moderate tricompartmental degenerative changes. No acute bony abnormalities. Signed by: Dr. Didi Shah M.D. on 01/29/2019 10:45 AM
[2019-01-29 12:07] LABS: BILIRUBIN,URINE NEGATIVE (NEGATIVE); CLARITY,URINE CLEAR (CLEAR); COLOR,URINE YELLOW (YELLOW); KETONES,URINE NEGATIVE (NEGATIVE); LEUKOCYTE ESTERASE ,URINE NEGATIVE (NEGATIVE); NITRITE,URINE NEGATIVE (NEGATIVE); PROTEIN,URINE DIPSTICK TRACE (NEGATIVE); URINE UROBILINOGEN 0.2 mg/dL (0.2 - 1)
[2019-01-29 12:19] LABS: BACTERIA,URINE FEW /HPF; EPITHELIAL CELLS,URINE FEW /LPF; RBC,URINE 0-5 /HPF (0-5); WBC,URINE (MAN) 0-5 /HPF (0-5)
[2019-01-29 12:45] VITALS: BP 123/63
[2019-01-29] MEDS ORDERED: ACETAMINOPHEN 325 MG TAB PO ONE (14:00)
[2019-01-29] MEDS ORDERED: FUROSEMIDE INJ 10 MG/ML 4 ML VIAL IV ONE (14:00)
--- OUTSIDE RECORDS SUMMARY | 2019-01-29 14:21 | XMS REPORT | Continuity of Care Document ---
Author Author FND Address Unknown Phone Unavailable Care Team Providers Care Precision Grinder External Name Role Phone [employer] Information Exchange Unavailable Unavailable Problems Problem Status [...] 07/21/2017 Hector Rios Anemia Active Problem 08/11/2018 [facility] Medications Medication Details Route Status Patient Instructions Ordering Provider Order Date Source Cetirizine Hcl (Zyrtec) 10 Mg Tablet, 10 Mg Oral Daily Active 08/09/2018 [facility] Metoprolol Tartrate 25 Mg Tablet, 25 Mg Oral Daily Active 08/09/2018 [facility] Potassium Chloride 20 Meq Tab.er.prt, 20 Meq Oral Daily Active 08/09/2018 [facility] Hydroxychloroquine Sulfate 1 tablet with food or milk Orally Active 200 MG Orally Twice a day [place] 04/07/2017 Hector Rios Aspirin , 81 Mg Oral Daily Active 06/24/2016 [facility] Eliquis , 5 Mg Oral Twice A Day Active 06/24/2016 [facility] Naproxen Sodium (Aleve) 220 Mg Capsule, 1 Tab Oral Twice A Day Active 06/24/2016 [facility] Bisoprolol , Daily Active 06/22/2016 [facility] Triamterene , Daily Active 06/22/2016 [facility] Aleve , As Needed Active 10/07/2012 [facility] Amlodipine Besylate 1 tablet Orally Active 10 [...] (65 Fe) MG Orally Once a day [facility] Hector Rios Amlodipine 10 Mg Daily Active [facility] Cyanocobalamin (Vitamin B-12) 1,000 Mcg Tab Daily Active [facility] Febuxostat (Uloric) 40 Mg Tablet Daily Active [facility] Ferrous Sulfate (Iron Supplement) 325 Mg Tablet Daily Active [facility] Furosemide 40 Mg Tablet Daily Active [facility] Levothyroxine Sodium 150 Mcg Tablet Daily Active [facility] Pantoprazole Sodium (Protonix) 40 Mg Tablet.dr Daily Active [facility] Rosuvastatin Calcium (Crestor) 10 Mg Tab Bedtime Active THERAPEUTICALLY SUBSTITUTED WITH SIMVASTATIN 40MG [facility] Allergies, Adverse Reactions, Alerts Substance Category Reaction Severity Reaction type Status Date Reported Comments Source Iodine TOPICAL IODINE Unknown Allergy to Substance Active 08/09/2018 [facility] Immunizations No Data Provided for This Section Results Order Name Results Value Reference Range Date Interpretation Comments Source Blood leukocytes automated count (number/volume) 3.91 4.8 - 10.8 08/11/2018 [facility] Blood erythrocytes automated count (number/volume) 2.85 3.6 - 5.1 08/11/2018 [facility] Blood hemoglobin measurement (moles/volume) 8.5 12.0 - 16.0 08/11/2018 [facility] Automated blood hematocrit (volume fraction) 25.4 34.2 - 44.1 08/11/2018 [facility] Automated erythrocyte mean corpuscular volume 89.1 81 - 99 08/11/2018 [facility] Automated erythrocyte mean corpuscular hemoglobin (mass per erythrocyte) 29.8 28 - 32 08/11/2018 [facility] Automated erythrocyte mean corpuscular hemoglobin concentration measurement (mass/volume) 33.5 31 - 35 08/11/2018 [facility] RDW BldCo-Rto 11.9 11.7 - 14.4 08/11/2018 [facility] Automated blood platelet count (count/volume) 172 140 - 360 08/11/2018 [facility] Automated blood segmented neutrophil count as percentage of total leukocytes 55.2 38.7 - 80.0 08/11/2018 [facility] Automated blood lymphocyte count as percentage ot total leukocytes 28.9 18.0 - 39.1 08/11/2018 [facility] Automated blood monocyte count as percentage of total leukocytes 13.0 4.4 - 11.3 08/11/2018 [facility] Automated blood eosinophil count as percentage of total leukocytes 1.8 0.0 - 6.0 08/11/2018 [facility] Automated blood basophil count as percentage of total leukocytes 0.8 0.0 - 1.0 08/11/2018 [facility] IM GRANULOCYTES % 0.3 0.0 - 1.0 08/11/2018 [facility] Automated blood neutrophil count 2.2 2.1 - 6.9 08/11/2018 [facility] Blood lymphocytes count (number/volume) 1.1 1.0 - 3.2 08/11/2018 [facility] Blood monocytes automated count (number/volume) 0.5 0.2 - 0.8 08/11/2018 [facility] Automated blood eosinophil count 0.1 0.0 - 0.4 08/11/2018 [facility] Automated blood basophil count (count/volume) 0.0 0.0 - 0.1 08/11/2018 [facility] Absolute Immature Granulocyte (auto 0.01 0 - 0.1 08/11/2018 [facility] Serum or plasma sodium measurement (moles/volume) 132 136 - 145 08/11/2018 [facility] Serum or plasma potassium measurement (moles/volume) 3.8 3.5 - 5.1 08/11/2018 [facility] Serum or plasma chloride measurement (moles/volume) 100 98 - 107 08/11/2018 [facility] Serum or plasma carbon dioxide, total measurement (moles/volume) 25 22 - 29 08/11/2018 [facility] Serum or plasma anion gap 10.8 8 - 16 08/11/2018 [facility] Serum or plasma urea nitrogen measurement (mass/volume) 13 7 - 26 08/11/2018 [facility] Serum or plasma creatinine measurement (mass/volume) 1.31 0.57 - 1.11 08/11/2018 [facility] Serum or plasma urea nitrogen/creatinine mass ratio 10 6 - 25 08/11/2018 [facility] Estimated glomerular filtration rate (GFR) determination 39 60 08/11/2018 [facility] Glucose measurement 75 74 - 118 08/11/2018 [facility] Serum or plasma calcium measurement (mass/volume) 8.5 8.4 - 10.2 08/11/2018 [facility] Serum or plasma total bilirubin measurement (mass/volume) 0.4 0.2 - 1.2 08/11/2018 [facility] Aspartate Amino Transf (AST/SGOT) 32 5 - 34 08/11/2018 [facility] Serum or plasma alanine aminotransferase measurement (enzymatic activity/volume) 16 0 - 55 08/11/2018 [facility] Serum or plasma protein measurement (mass/volume) 5.8 6.5 - 8.1 08/11/2018 [facility] Serum or plasma albumin measurement (mass/volume) 2.9 3.5 - 5.0 08/11/2018 [facility] Plasma globulin measurement (mass/volume) 2.9 2.3 - 3.5 08/11/2018 [facility] Serum or plasma albumin/globulin mass ratio 1.0 0.8 - 2.0 08/11/2018 [facility] Serum or plasma alkaline phosphatase measurement (enzymatic activity/volume) 45 40 - 150 08/11/2018 [facility] Capillary blood glucose measurement by glucometer (mass/volume) 86 70 - 120 08/10/2018 [facility] Serum or plasma thyrotropin measurement by detection limit <=0.005 miu/l (units/volume) 1.568 0.350 - 4.940 08/10/2018 [facility] Prothrombin time (PT) in platelet poor plasma by coagulation assay 12.0 11.9 - 14.5 08/09/2018 [facility] INR in Platelet poor plasma by Coagulation assay 0.84 08/09/2018 [facility] Activated partial thromboplastin time (aPTT) in platelet poor plasma bycoagulation assay 27.6 23.8 - 35.5 08/09/2018 [facility] Urine color determination STRAW YELLOW 08/09/2018 [facility] Urine clarity CLEAR CLEAR 08/09/2018 [facility] Specific gravity of Urine by Test strip 1.005 1.010 - 1.025 08/09/2018 [facility] Urine pH measurement by automated test strip 6 5 - 7 08/09/2018 [facility] Urine leukocyte esterase detection by dipstick NEGATIVE NEGATIVE 08/09/2018 [facility] Urine nitrite detection NEGATIVE NEGATIVE 08/09/2018 [facility] Urine protein measurement by test strip (mass/volume) NEGATIVE NEGATIVE 08/09/2018 [facility] Urine glucose detection NEGATIVE NEGATIVE 08/09/2018 [facility] Urine ketones detection by automated test strip NEGATIVE NEGATIVE 08/09/2018 [facility] Urine urobilinogen measurement by test strip (mass/volume) 0.2 0.2 - 1 08/09/2018 [facility] Urine total bilirubin measurement (mass/volume) NEGATIVE NEGATIVE 08/09/2018 [facility] Urine erythrocytes detection TRACE NEGATIVE 08/09/2018 [facility] Automated urine sediment leukocyte count by microscopy (number/high power field) NONE 0 - 5 08/09/2018 [facility] Erythrocytes detection in urine sediment by light microscopy 0-5 0 - 5 08/09/2018 [facility] Bacteria detection in urine sediment by light microscopy MODERATE NONE 08/09/2018 [facility] Epithelial cells detection in urine sediment by light microscopy RARE NONE 08/09/2018 [facility] Amorphous sediment detection in urine sediment by light microscopy FEW FEW 08/09/2018 [facility] BNP Bld[facility] 82.5 0 - 100 08/09/2018 [facility] Serum or plasma creatine kinase measurement (enzymatic activity/volume) 92 29 - 168 08/09/2018 [facility] Serum or plasma creatine kinase MB measurement (mass/volume) 3.10 0 - 5.0 08/09/2018 [facility] Troponin I measurement by highly sensitive enzyme immunoassay 0.046 0 - 0.300 08/09/2018 [facility] Serum or plasma amylase measurement (enzymatic activity/volume) 68 25 - 125 08/09/2018 [facility] Serum or plasma lipase measurement (enzymatic activity/volume) 27 8 - 78 08/09/2018 [facility] Pathology Reports No Data Provided for This [...] Status Source Karri Gaviria MD PA Unknown [id number] 05/20/2016 05/20/2016 Karri Gaviria Discharged Inpatient (obs) [id number] BO GARDINER MD 08/09/2018 08/11/2018 [facility] Procedures Procedure Code Date Perfomer Comments Source Computed tomography of brain without radiopaque contrast [id number] 08/09/2018 [facility] Assessment and Plan No Data Provided for This Section Plan of Care Plan of Care Date Source Discharge Date 08/11/18 1:32pm Disposition HOME, SELF-CARE Instructions/Education Provided Hyponatremia Weakness (Generalized) Prescriptions See Medication Section Additional Instructions/Education F/U with PCP in 7 days Drink no more than 4 - 8 oz cups of water per day 08/11/2018 [facility] Social History Social History Date Source Social [...] Start Date Stop Date Never Smoker 08/11/2018 [facility] Social History ElementQualifiersDate Reported Smoking . Status Never Smoker May 15, 2016 Alcohol Use No. May 15, 2016 Alcohol Screening: Yes. Did you have a drink containing alcohol in the past year?: No, Points: 0, Interpretation: Negative May 15, 2016 Marital Status: . May 15, 2016 Do you drink alcohol? No. May 15, 2016 Occupation: . Retired [employer] May 15, 2016 05/15/2016 Karri Gaviria Family History No Data Provided for This Section Advance Directives Order Name Results Value Date Source Advance Directives Advance Directives Directive Response Recorded Date/Time Does the patient have an advance directive? No 08/10/18 11:45am If yes, is advance directive on file with [facility]? No 08/10/18 11:45am If not on file with [facility] will patient provide a copy? No 08/10/18 11:45am Do you have a Directive to Physician? No 08/09/18 2:07pm Do you have a Medical Power of Wind Plant Manager? No 08/09/18 2:07pm Do you have an [...] rights and responsibilities? Yes 08/09/18 2:07pm 08/11/2018 [facility] Functional Status No Data Provided for This Section
[2019-01-29 16:17] VITALS: BP 129/74
[2019-01-29] MEDS ORDERED: FUROSEMIDE INJ 10 MG/ML 4 ML VIAL IV SCH (17:00)
[2019-01-29 17:40] LABS: CREATINE KINASE MB 1.5 ng/mL (0-5.0)
--- NOTE | 2019-01-29 19:00 | NUR ---
RECEIVED PATIENT IN REPORT. PATIENT RESTING IN BED. STATES PAIN IS 0.5/10. STATES SHE FEELS MUCH BETTER THAN WHEN SHE CAME IN. EDEMA NOTED TO BILAT LOWER EXTREMITIES, SLIGHTLY MORE IN LLE. SLIGHTLY PAINFUL TO THE TOUCH. L WRIST 20G IV ASYMPTOMATIC, INTACT, AND PATENT. NO S&S OF DISTRESS NOTED. BED LOCKED IN LOWEST POSITION, SIDE RAILS UPX2, CALL LIGHT IN REACH.
[2019-01-29 20:00] VITALS: BP 141/71
[2019-01-29 20:55] VITALS: BP 141/71
[2019-01-29] MEDS: SIMVASTATIN 20 MG TAB PO SCH (21:35)
[2019-01-30] VITALS (7 sets, daily range): BP systolic 124–153; BP diastolic 61–82
[2019-01-30 06:14] LABS: BASOPHILS % 0.1 % (0.0-1.0); EOSINOPHILS # (AUTO) 0.2 (0.0-0.4); EOSINOPHILS % 2.3 % (0.0-6.0); HEMATOCRIT 28.9 % (34.2-44.1); HEMOGLOBIN 9.3 g/dL (12.0-16.0); LYMPHOCYTES # (AUTO) 1.1 (1.0-3.2); LYMPHOCYTES % 11.1 % (18.0-39.1); MEAN CORPUSCULAR HEMOGLOBIN 28.9 pg (28-32); MEAN CORPUSCULAR HGB CONC 32.2 g/dL (31-35); MEAN CORPUSCULAR VOLUME 89.8 fL (81-99); MONOCYTES # (AUTO) 1.2 (0.2-0.8); MONOCYTES % 11.7 % (4.4-11.3); NEUTROPHILS # (AUTO) 7.5 (2.1-6.9); NEUTROPHILS % 74.1 % (38.7-80.0); PLATELET COUNT 403 x10e3/uL (140-360); RED BLOOD COUNT 3.22 x10e6/uL (3.6-5.1); RED CELL DISTRIBUTION WIDTH 13.5 % (11.7-14.4)
[2019-01-30 06:31] LABS: ALBUMIN 2.2 g/dL (3.5-5.0); ALBUMIN/GLOBULIN RATIO 0.6 (0.8-2.0); ANION GAP 13.5 mmol/L (8-16); CALCIUM 9.2 mg/dL (8.4-10.2); CREATININE, SERUM 1.41 mg/dL (0.57-1.11); POTASSIUM 3.5 mmol/L (3.5-5.1)
[2019-01-30] MEDS: AMLODIPINE BESYLATE 10 MG TAB PO SCH (08:45)
[2019-01-30] MEDS: FERROUS SULFATE 325 MG TAB PO SCH (08:45)
[2019-01-30] MEDS: CYANOCOBALAMIN 1,000 MCG TAB PO SCH (08:45)
[2019-01-30] MEDS: PANTOPRAZOLE SOD 40 MG TABEC PO SCH (08:45)
[2019-01-30] MEDS: LEVOTHYROXINE SODIUM 75 MCG TAB PO SCH (08:45)
[2019-01-30] MEDS ORDERED: FUROSEMIDE 40 MG TAB PO SCH (09:00)
[2019-01-30] MEDS: FEBUXOSTAT 40 MG PO SCH (09:00)
--- NOTE | 2019-01-30 12:35 | Diagnostic Imaging Report ---
Frontal and lateral views of the chest - 3 images HISTORY: CHF, shortness of breath COMPARISON: None available. DISCUSSION: Lungs and pleura: Persistent large left pleural effusion with adjacent atelectasis. Persistent diffusely increased pulmonary tissue markings. Heart and mediastinum: The cardiac silhouette and central pulmonary vasculature appear(s) remains partially obscured, but appears enlarged. Bones and soft tissues: Appear unremarkable. IMPRESSION: Findings remain compatible with volume overload resulting in central pulmonary vascular congestion, interstitial edema, large left pleural effusion and adjacent atelectasis. Recommend short term follow up routine PA and lateral chest radiographs, in 6 to 8 weeks, to evaluate for resolution. Signed by: Dr. Alexei Farfan D.O., M.M.M. on 01/30/2019 12:32 PM
[2019-01-30] MEDS: ACETAMINOPHEN 325 MG TAB PO PRN (14:45)
--- NOTE | 2019-01-30 19:00 | NUR ---
RECEIVED PATIENT IN REPORT. NO PAIN REPORTED. NO S&S OF DISTRESS NOTED. BED LOCKED IN LOWEST POSITION, SIDE RAILS UPX2, CALL LIGHT IN REACH. BED ALARM ON, WALKER AND BEDSIDE COMMODE IN PLACE.
[2019-01-30] MEDS: SIMVASTATIN 20 MG TAB PO SCH (20:21)
--- NOTE | 2019-01-30 21:30 | Consultation ---
DATE OF CONSULTATION: 01/30/2019 Cardiac Consultation REASON FOR CONSULTATION: Severe weakness. HISTORY OF PRESENT ILLNESS: An 83-year-old lady, who is known with hypertension, chronic renal insufficiency, paroxysmal atrial fibrillation first diagnosed in April 2016 and hemifacial spasm discussed in 2000. She also does have gout. The patient seen in our office as urgent referral from Dr. Duke because of SVT with a rate at 150. At that time, she did not want to be admitted. The patient is already on Eliquis. Her metoprolol was stopped because of fear of sick sinus syndrome. We resumed her metoprolol with instruction on how to use it and to adjust her medication with understanding if she is having shortness of breath or dizzy spells, she needs to come to the emergency room. Patient came to the emergency room complaining mainly of weakness, unable to do any activity, easy fatigability, shortness of breath on exertion. She is in atrial fibrillation with nonspecific ST-T changes, rate in the 90s, i.e., controlled heart rate. Her BNP was mildly elevated at 446. Her CKs are normal. Her TSH is 1.83, and her chest x-ray showed pleural effusion and evidence of volume overload. Cardiac consultation is obtained. Patient's symptoms are progressively worse over the last week, which were she noted quite a lot of tachycardia. Of note, the patient had also poor appetite and some weight loss. There is orthopnea, but no paroxysmal nocturnal dyspnea. There is no syncope or presyncope. CURRENT MEDICATIONS: Eliquis which the patient refused to take any more because of recent GI bleed a year ago. She is on aspirin 81 mg a day. She is on amlodipine 10 mg a day. She is on metoprolol 25 mg twice a day. She is on levothyroxine 150 mcg a day. She is on Lasix 40 mg a day and prednisone 2.5 mg a day, Protonix 40 mg a day. ALLERGIES: CODEINE, IODINE AND SEASONAL ALLERGY. THE PATIENT REFUSED TO TAKE ANY ORAL ANTICOAGULATION. PAST MEDICAL/SURGICAL HISTORY: 1. Hypertension. 2. GI bleed in 2017. 3. Class 3 renal failure. 4. Possible sick sinus syndrome. 5. Probability of paroxysmal atrial fibrillation or possible SVT. 6. Right rotator cuff surgery. 7. Hemorrhoidectomy. 8. Bilateral feet surgery. 9. Bilateral cataract surgery. SOCIAL HISTORY: She is nonsmoker. No alcohol drinker. She is retired crater and packer. She is a . FAMILY HISTORY: Father at age 36 with pneumonia. Mother at age 56 with heart disease. Two siblings, one half brother of heart attack, one healthy son. REVIEW OF SYSTEMS: GENERAL: Weakness, some weight loss. HEENT: Facial tic and facial spasm. PULMONARY AND CARDIAC: Easy fatigability and shortness of breath on minimal activity. GI: Poor appetite, GERD. HEMATOLOGY: Easy bruising and bleeding. : Increased frequency of urination. MUSCULOSKELETAL: Weakness. No localized deficits. Peripheral vascular leg weakness. SKIN: No skin rash. NEUROLOGIC: Right facial spasms. PSYCHIATRIC: No suicidal ideation. No depression. PHYSICAL EXAMINATION: VITAL SIGNS: Height of 5 feet 6 inches, weight of 152 pounds, blood pressure 110/70, heart rate of 90, respiratory rate of 18. HEENT: Facial asymmetry and facial spasms. NECK: No elevation of jugular venous pulsation. CHEST: Decreased lung expansion. Few crackles. HEART: Irregular heart rate. Normal first and second heart sounds. Soft ejection systolic murmur. ABDOMEN: Soft with good bowel sounds. No organomegaly. EXTREMITIES: No cyanosis, no clubbing, no edema. NEUROLOGIC: Grossly nonfocal with exception of face asymmetry. LABORATORY DATA: Sodium of 137, potassium 3.5, BUN of 33, creatinine of 1.41. White blood cell count of 10, hemoglobin of 9.3, hematocrit 29%, platelet count of 403,000. EKG, atrial fibrillation, nonspecific ST changes. BNP of 446. TSH of 1.83. CKs are normal. IMPRESSION AND PLAN: 1. Atrial arrhythmias. 2. Possible sick sinus syndrome. 3. Worsening congestive heart failure, most likely secondary to atrial arrhythmia and acute diastolic heart failure. 4. Carotid arterial disease. 5. Hypertension. 6. Proximal leg weakness. 7. Hemifacial spasm. 8. Hypercholesteremia. Cardiac dominique, treatment will be gentle diuresis, adjusting blood pressure medication, beta-robb with precaution. Of note, patient had an echocardiogram in July, which showed preserved left ventricular systolic function. We will follow the patient's progression with you and would like to thank you for the kind referral. MD BRYCE Canchola/MODL /[id number]
[2019-01-30] MEDS ORDERED: AZITHROMYCIN 500MG/NS 250 ML 250 ML IV SCH (23:00)
[2019-01-30] MEDS ORDERED: SODIUM CHLORIDE 0.9% 250ML 250 ML ONE (23:19)
[2019-01-30] MEDS: CEFTRIAXONE SOD 1 GM/NS 50 ML 50 ML IV SCH (23:25)
[2019-01-31] VITALS: BP 146/73
[2019-01-31 04:00] VITALS: BP 129/66
[2019-01-31] MEDS: ACETAMINOPHEN 325 MG TAB PO PRN (04:10)
[2019-01-31 05:34] LABS: BASOPHILS % 0.4 % (0.0-1.0); EOSINOPHILS # (AUTO) 0.3 (0.0-0.4); EOSINOPHILS % 3.4 % (0.0-6.0); HEMATOCRIT 29.3 % (34.2-44.1); HEMOGLOBIN 9.3 g/dL (12.0-16.0); LYMPHOCYTES # (AUTO) 1.4 (1.0-3.2); LYMPHOCYTES % 17.7 % (18.0-39.1); MEAN CORPUSCULAR HEMOGLOBIN 28.6 pg (28-32); MEAN CORPUSCULAR HGB CONC 31.7 g/dL (31-35); MEAN CORPUSCULAR VOLUME 90.2 fL (81-99); MONOCYTES % 11.8 % (4.4-11.3); NEUTROPHILS # (AUTO) 5.4 (2.1-6.9); NEUTROPHILS % 66.1 % (38.7-80.0); PLATELET COUNT 436 x10e3/uL (140-360); RED BLOOD COUNT 3.25 x10e6/uL (3.6-5.1); RED CELL DISTRIBUTION WIDTH 13.4 % (11.7-14.4)
[2019-01-31 05:54] LABS: ANION GAP 11.5 mmol/L (8-16); CALCIUM 8.9 mg/dL (8.4-10.2); CREATININE, SERUM 1.31 mg/dL (0.57-1.11); POTASSIUM 3.5 mmol/L (3.5-5.1)
[2019-01-31 08:00] VITALS: BP 116/60
[2019-01-31 09:00] VITALS: BP 116/60
[2019-01-31] MEDS ORDERED: FUROSEMIDE INJ 10 MG/ML 4 ML VIAL IV SCH ×2 (09:00→09:30)
[2019-01-31] MEDS ORDERED: METOPROLOL TARTRATE INJ 1 MG/ML VIAL ONE (09:15)
[2019-01-31] MEDS ORDERED: POTASSIUM CHLORIDE 20 MEQ TAB CR PO ONE (09:20)
--- NOTE | 2019-01-31 09:35 | NUR ---
Received LTAC eval order. CM spoke to pt at bedside. Pt states Dr. Duke spoke with her regarding transfer to LTAC. Pt wants to stay in this area and wants to go "across the street." Choice letter signed for [facility]. Signed letter placed in chart. Copy to pt. Chikis Jiménez, with [facility] was informed of referral and order to transfer once accepted. Discharge disposition: [facility] [address] [place] [address] business card left with pt for any questions/concerns.
[2019-01-31 09:47] LABS: CHOL/HDL RATIO 5.2 (3.0-3.6)
[2019-01-31] MEDS: FEBUXOSTAT 40 MG PO SCH (09:55)
[2019-01-31] MEDS: FERROUS SULFATE 325 MG TAB PO SCH (09:55)
[2019-01-31] MEDS: PANTOPRAZOLE SOD 40 MG TABEC PO SCH (09:55)
[2019-01-31] MEDS: CYANOCOBALAMIN 1,000 MCG TAB PO SCH (09:56)
[2019-01-31] MEDS: AMLODIPINE BESYLATE 10 MG TAB PO SCH (09:56)
[2019-01-31] MEDS: LEVOTHYROXINE SODIUM 75 MCG TAB PO SCH (09:56)
[2019-01-31] MEDS: METOPROLOL TARTRATE 25 MG TAB PO SCH ×2 (09:57→17:37)
--- NOTE | 2019-01-31 10:11 | NUR ---
Referral faxed to [facility] at [phone].
[2019-01-31] MEDS ORDERED: METOPROLOL TARTRATE INJ 1 MG/ML VIAL IV ONE (10:15)
[2019-01-31 12:00] VITALS: BP 99/62
[2019-01-31] MEDS: CEFTRIAXONE SOD 1 GM/NS 50 ML 50 ML IV SCH (12:22)
--- NOTE | 2019-01-31 15:11 | NUR ---
Dictated DC summary: [id number]
--- NOTE | 2019-01-31 15:40 | NUR ---
Patient has been accepted to: [facility] [address] [place] [address] Accepting logistics administrator: Sahil Viera, BRAIDER OPERATOR Accepting MD: Dr. Bradly Duke Rm [id number] Nurse call report to [phone] The following documents must accompany patient for transfer: copy of chart Copied chart: Gabriela, community health nurse staff MOT info received from: Chikis Jiménez Physician's order/reconciled med list: Bedside RN to obtain [id number] DNR: n/a MOT was completed and placed with pt's packet at nurses station. Tia, RN was notified. Dr. Duke also notified of acceptance and pt's room number.
--- NOTE | 2019-01-31 15:50 | Discharge Summary ---
ADMIT DIAGNOSES: 1. Acute on chronic diastolic heart failure. 2. Atrial arrhythmia, likely atrial flutter. 3. Acute on chronic renal insufficiency. 4. Hypertensive heart disease. DISCHARGE DIAGNOSES: 1. Left lower lobe pneumonia. 2. Acute on chronic diastolic congestive heart failure, resolving. 3. Acute on chronic renal insufficiency, resolved. 4. Stage 3 chronic kidney disease. 5. Supraventricular tachycardia, resolved. 6. Atrial arrhythmia, likely flutter, resolving. 7. Hypertensive heart disease, resolved. HOSPITAL COURSE: This is an 83-year-old white woman, who was initially admitted to [facility] with diagnosis of acute on chronic diastolic heart failure as well as acute on chronic renal insufficiency. During this hospitalization diagnosis, she was diagnosed with left lower lobe pneumonia. The patient did improve somewhat with intravenous antibiotics namely ceftriaxone, azithromycin in regard to pneumonia. The patient's congestive heart failure improved with intravenous furosemide. The patient is seen by kiln transfer operator and hospitalist, namely Dr. Karri Gaviria. The patient underwent serial cardiac enzymes as well as electrocardiograms, which did not reveal any evidence of acute myocardial ischemia or infarction. On admission, the patient's white blood cell count was 15,100 with 75% segmented neutrophils. On day of discharge, the patient's white blood cell count was 8000 with 66% segmented neutrophils. The patient's condition on discharge was stable. Decision was made to transfer the patient to a long-term acute care facility namely [facility] where she could receive intravenous antibiotics for pneumonia as well as intravenous furosemide for her congestive heart failure. DISCHARGE MEDICATIONS: 1. Ceftriaxone 1 g intravenous every 12 hours. 2. Azithromycin 500 mg intravenous daily. 3. Furosemide 40 mg intravenous daily. 4. Metoprolol tartrate 25 mg q.8 hours. 5. Levothyroxine 150 mcg daily. 6. Vitamin B12 1000 mcg daily. 7. Pantoprazole 40 mg daily. 8. Ferrous sulfate 325 mg daily. 9. Amlodipine 5 mg daily. 10. Apixaban 2.5 mg b.i.d. FOLLOWUP INSTRUCTIONS: As previously stated, the patient was transferred to a local long-term acute care facility, namely [facility] where she will be under the care of attending, namely myself, Dr. Bradly Duke. MD PRANAV Curiel/RANDALLL /[id number] cc: Karri Gaviria MD
[2019-01-31 16:00] VITALS: BP 145/85
[2019-01-31] MEDS ORDERED: APIXAB 2.5 MG TABLET PO SCH (17:00)
[2019-02-01] MEDS ORDERED: LEVOTHYROXINE SODIUM 75 MCG TAB PO SCH (06:00)
[2019-02-01] MEDS ORDERED: AMLODIPINE BESYLATE 5 MG TAB PO SCH (09:00)
[2019-02-01] MEDS ORDERED: FUROSEMIDE INJ 10 MG/ML 4 ML VIAL IV SCH (09:00)
[2019-02-01] MEDS ORDERED: AMLODIPINE BESYLATE 10 MG TAB PO SCH (09:00)
[2019-02-01] MEDS ORDERED: METOPROLOL SUCCINATE 50 MG TAB XL PO SCH (09:00)
== END 2019-01-31 19:33 | disposition home or self-care (01) | DRG 291 ==
LOC: ER 08:59 → ERHOLD 13:42 → MED/SURG2 15:36
PROVIDERS: ADMIT Internal Medicine; ATTEND Internal Medicine
DX: I13.0 Hypertensive heart and chronic kidney disease with heart failure and stage 1 through stage 4 chronic kidney disease, or unspecified chronic kidney disease (principal); I50.33 Acute on chronic diastolic (congestive) heart failure; J18.1 Lobar pneumonia, unspecified organism; N17.9 Acute kidney failure, unspecified; I48.92 Unspecified atrial flutter; N18.3 Chronic kidney disease, stage 3 (moderate); I49.5 Sick sinus syndrome; I48.91 Unspecified atrial fibrillation
CPT/HCPCS: 36415; 70450; 71045; 71046; 80048; 80053; 80061; 81001; 82550; 82553; 83735; 83880; 84443; 84484; 85025; 85610; 85730; 87086; 93005; 93306; 93971; 99285; J0456; J0696; J1940; J7050

== ENCOUNTER → 2020-07-05 | Outpatient (CLI) | payer MEDICARE, BC ==
[2020-07-05 12:22] LABS: BASOPHILS % 0.3 % (0.0-1.0); EOSINOPHILS % 0.2 % (0.0-6.0); HEMATOCRIT 36.1 % (34.2-44.1); HEMOGLOBIN 11.8 g/dL (12.0-16.0); LYMPHOCYTES # (AUTO) 1.8 (1.0-3.2); LYMPHOCYTES % 16.4 % (18.0-39.1); MEAN CORPUSCULAR HEMOGLOBIN 29.4 pg (28-32); MEAN CORPUSCULAR HGB CONC 32.7 g/dL (31-35); MONOCYTES # (AUTO) 0.9 (0.2-0.8); MONOCYTES % 8.2 % (4.4-11.3); NEUTROPHILS % 74.4 % (38.7-80.0); PLATELET COUNT 209 x10e3/uL (140-360); RED BLOOD COUNT 4.01 x10e6/uL (3.6-5.1); RED CELL DISTRIBUTION WIDTH 12.7 % (11.7-14.4)
[2020-07-05 12:48] LABS: ANION GAP 17.6 mmol/L (8-16); CALCIUM 9.9 mg/dL (8.4-10.2); CREATININE, SERUM 2.74 mg/dL (0.57-1.11); POTASSIUM 3.6 mmol/L (3.5-5.1)
[2020-07-05 13:09] LABS: THYROID STIMULATING HORMONE 15.213 uIU/mL (0.350-4.940)
== END ==
LOC: LAB 12:01
PROVIDERS: ATTEND Internal Medicine
DX: E03.9 Hypothyroidism, unspecified (principal); I50.42 Chronic combined systolic (congestive) and diastolic (congestive) heart failure; N18.4 Chronic kidney disease, stage 4 (severe); D63.1 Anemia in chronic kidney disease; I48.0 Paroxysmal atrial fibrillation; R53.83 Other fatigue
CPT/HCPCS: 36415; 80048; 83880; 84443; 85025